=== PATIENT | male | born 1970 | race Caucasian/White ===

== ENCOUNTER 2021-09-02 03:26 | Emergency (ER) | payer BC ==
[~2021-09-02] VITALS: Ht 190.5 cm; Wt 136.0 kg
[2021-09-02] MEDS ORDERED: SIMVASTATIN5 MG PO (03:36)
[2021-09-02] MEDS ORDERED: SINGULAIR10 MG (03:36)
[2021-09-02] MEDS ORDERED: HYDROCHLOROTHIA25 MG (03:38)
--- OUTSIDE RECORDS SUMMARY | 2021-09-02 04:04 | XMS ---
PreManage Notification: VIGNESH BURNETT [employer] Events No recent Security Events currently on file CRITERIA MET - [facility] - 2 Visits in 30 Days CARE PROVIDERS ADRI[facility] KAE PHONE: Unknown Yun has no Care Guidelines for this patient. E.D. VISIT COUNT (12 MO.) [address] TOTAL 3 NOTE: Visits indicate total known visits. ED/UCC VISIT TRACKING (12 MO.) 09/02/2021 03:26 [facility] TYPE: Emergency COMPLAINT: - CHEST PAIN 08/30/2021 10:16 [facility] [place] TYPE: Emergency COMPLAINT: - CP 01/02/2021 22:28 [facility] TYPE: Emergency DIAGNOSES: - Chest Pain - Abnormal levels of other serum enzymes - Chest pain, unspecified - Cocaine use, unspecified, uncomplicated INPATIENT VISIT TRACKING (12 MO.) No inpatient visits to display in this time frame [email or web address]
--- NOTE | 2021-09-02 13:40 | EKG ---
[facility] [address] [facility] [place] [address] Signed Sinus tachycardia Otherwise normal ECG No previous ECGs available Confirmed by KINGA SHARP MD ([id number]) on 09/02/2021 1:40:20 PM Electronically Signed By: KINGA SHARP MD 09/02/21 1340 PATIENT NAME: VIGNESH BURNETT Electrocardiogram DATE OF : 70 PHYSICIAN: KINGA SHARP MD REPORT #: [id number] REPORT IS CONFIDENTIAL AND NOT TO BE RELEASED WITHOUT AUTHORIZATION
== END 2021-09-02 04:50 | disposition home or self-care (01) ==
LOC: EDBD 03:26 → ED 03:26
DX: R07.89 Other chest pain (principal); F14.10 Cocaine abuse, uncomplicated; E78.00 Pure hypercholesterolemia, unspecified; I10 Essential (primary) hypertension; E11.9 Type 2 diabetes mellitus without complications; Z79.899 Other long term (current) drug therapy
CPT/HCPCS: 36415; 71045; 80053; 83735; 84484; 85025; 85379; 93005; 93010; 96374; 99285-25; J1885